=== PATIENT | female | born 1995 | race Two or more races ===

== ENCOUNTER 2024-12-26 15:58 | Emergency (ER) | payer BC ==
[~2024-12-26] VITALS: Ht 170.2 cm; Wt 57.6 kg
[2024-12-26 16:31] VITALS: TEMP 98
[2024-12-26 18:09] LABS: PREGNANCY TEST URINE QUAL NEGATIVE (NEGATIVE)
[2024-12-26] MEDS ORDERED: IBUP-1490 PO (19:24)
[2024-12-26 19:47] VITALS: BP 116/70; O2SAT 98
== END 2024-12-26 19:47 | disposition home or self-care (01) ==
LOC: ER 16:18
DX: R10.9 Unspecified abdominal pain (principal); M54.2 Cervicalgia; H53.8 Other visual disturbances; G44.309 Post-traumatic headache, unspecified, not intractable; V43.52XA Car driver injured in collision with other type car in traffic accident, initial encounter; Y93.89 Activity, other specified; Y92.410 Unspecified street and highway as the place of occurrence of the external cause; Y99.8 Other external cause status
CPT/HCPCS: 70450-TC; 72125-TC; 76705-TC; 84703-TC